=== PATIENT | female | born 1960 | race Caucasian/White ===

== ENCOUNTER 2016-10-21 08:40 | Emergency (ER) | payer MEDICARE, OTHER ==
--- NOTE | ~2016-10-21 | CR142 ---
[facility] A Service of [facility] RADIOLOGY TEXT RESULTS PATIENT: IBRAHIMA MORALES LOCATION: CFTX : 56 UNIT #: [id number] AGE: [address]: Mindi Shaw SEX: F ORDER DR: [id number] [facility] [address] [place], [place] [address] [id number] E MR#: [id number] Acc #: [id number] NAME: IBRAHIMA MORALES : 1960 SEX: F STUDY DATE/TIME: 10/21/2016 9:48 UNIT: [facility] ROOM: STUDY DESCRIPTION: CR Hand Min 3 Views Rt Attending Physician: Mindi Shaw P.A.-C. Ordering Physician: Mindi Shaw P.A.-C. Primary Care Physician: Primary Care Physician No MEDICAL IMAGING REPORT This report is preliminary unless electronic signature is present EXAM Right hand 3 views HISTORY 56-year-old female right thumb pain swelling, tripped over dog today. FINDINGS 3 views of the right hand demonstrates a complete dislocation at the first MCP joint with radial sided dislocation of the thumb. There is associated displacement of the sesamoids. Probable old fracture deformity base of the distal phalanx of the thumb. Bone mineralization unremarkable, soft tissues appear normal. IMPRESSION Complete radial sided dislocation of the thumb at the MCP joint with associated displacement of the sesamoids. No definite acute fracture. Suspected old fracture deformity base of the distal phalanx of the thumb. Dictated by... Gill Delgado M.D. THIS IS AN ELECTRONICALLY VERIFIED REPORT Gill Delgado M.D. at 10/21/2016 5:07 PM STEVE/kyrie TD: 10/21/2016 12:34 JOB #: [id number] MEDICAL IMAGING REPORT Page 1 of 1 COPY
--- NOTE | ~2016-10-21 | CR117 ---
[facility] A Service of [facility] RADIOLOGY TEXT RESULTS PATIENT: IBRAHIMA MORALES LOCATION: [place] : 56 UNIT #: [id number] AGE: [address]: Mindi Shaw SEX: F ORDER DR: [id number] [facility] [address] [place], [place] [address] [id number] E MR#: [id number] Acc #: [id number] NAME: IBRAHIMA MORALES : 1960 SEX: F STUDY DATE/TIME: 10/21/2016 11:12 UNIT: [facility] ROOM: STUDY DESCRIPTION: CR Finger 2 View Thumb Rt Attending Physician: Mindi Shaw P.A.-C. Ordering Physician: Mindi Shaw P.A.-C. Primary Care Physician: No Primary Care Physician MEDICAL IMAGING REPORT This report is preliminary unless electronic signature is present EXAM Right thumb 3 views 10/21/2016 1112 hours CLINICAL HISTORY 56-year woman tripped over A dog today suggesting distal suffering dislocation of the thumb. Postreduction films today. COMPARISON 10/21/2016 0914 hours. FINDINGS AP, lateral and oblique views demonstrate interval reduction of the dislocation at the first metacarpal phalangeal joint with anatomic alignment. No definite fracture is seen. IMPRESSION Interval reduction with anatomic alignment at the first metacarpal phalangeal joint since the earlier film today. No acute fracture or fracture fragment is seen. Dictated by... Juana Wall M.D. THIS IS AN ELECTRONICALLY VERIFIED REPORT Juana Wall M.D. at 10/22/2016 9:15 AM BENSON/rui TD: 10/21/2016 14:52 JOB #: [id number] MEDICAL IMAGING REPORT Page 1 of 1 COPY
[~2016-10-21 08:40] MED LIST: ATIVAN0.5 MG PO; AVELOX400 MG PO; BAYER ASPIRIN325 M1 PO; COMBIVENT INH14.7 GM INH; COMBIVENT MININEB INH; LISINOPRIL PO; LORTAB 7.5-5001 TAB PO; NORCO 10/3251 TAB PO; PRINIVIL40 MG PO; ROXICODONE5 MG/5 ML PO; ZITHROMAX PO
== END 2016-10-21 12:05 | disposition home or self-care (01) ==
LOC: CED 08:40 → CFTX 08:40
DX: S63.114A Dislocation of metacarpophalangeal joint of right thumb, initial encounter (principal); I10 Essential (primary) hypertension; Z79.899 Other long term (current) drug therapy; F17.210 Nicotine dependence, cigarettes, uncomplicated; W01.0XXA Fall on same level from slipping, tripping and stumbling without subsequent striking against object, initial encounter; Y92.009 Unspecified place in unspecified non-institutional (private) residence as the place of occurrence of the external cause
CPT/HCPCS: 29125; 73130; 73140; 99283